=== PATIENT | female | born 1970 | race Hispanic/Latino ===

== ENCOUNTER → 2022-06-29 13:50 | Outpatient (CLI) | payer OTHER, SELFPAY ==
--- NOTE | ~2022-06-29 | MR_ITS ---
EXAMINATION: MR knee LT wo con DATE: 06/29/2022 14:26 INDICATION: Left knee pain TECHNIQUE: Magnetic resonance imaging (MRI) of the left knee was performed without intravenous contra st. Sequences included coronal PD-weighted FSE, coronal PD-weighted FS FSE, sagittal T2-weighted FSE , sagittal PD-weighted FS FSE and axial PD weighted fat saturated FSE. COMPARISON: None. FINDINGS: Medial compartment: Complex tear of the posterior horn of the lateral meniscus which includes both longitudinal horizonta l and radial tear planes. Partial-thickness chondral fissuring along the anterior to central weightbe aring medial femoral condyle which appears to involve greater than 50% the cartilage thickness along the medial anterior femoral condyle with mild underlying edema-like signal change. Lateral compartment: Lateral meniscus is normal. Articular cartilage is normal. Patellofemoral compartment: Tarsal thickness chondral ulceration and deep fissuring at the medial collateral patellar facets and intervening apical ridge with couple small regions of underlying subarticular edema-like signal bishop e at the apical ridge and lateral facet. Chondral swelling and surface irregularity at the medial tro chlea. Ligaments and tendons: Anterior and posterior cruciate ligaments are normal. The medial collateral ligament and fibular chanda ateral ligament complex are normal. Mild distal quadriceps tendinopathy with small enthesophytes at i ts patellar insertion. Patellar tendon is normal. The visualized medial and lateral hamstring tendons as well as the iliotibial band are normal. Fluid: Small left knee joint effusion. No loose osteochondral bodies identified. Pretibial and prepatellar e leola without discrete bursal fluid collections. Osseous/other: Bone alignment is normal. Tiny bone island at the lateral femoral condyle. No fracture or pathologic marrow replacing process. IMPRESSION: 1. Complex medial meniscal tear. 2. 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 3. Likely reactive small left knee joint effusion. 4. Mild distal quadriceps tendinopathy/enthesopathy without tear. Reviewed, dictated and finalized at location A. [employer] IMPRESSION: 1. Complex medial meniscal tear. 2. Mild osteoarthritis with moderate and high-grade chondromalacia in the media l and patellofemoral compartments. 3. Likely reactive small left knee joint effusion. 4. Mild distal quadriceps tendinopathy/enthesopathy without tear.
== END ==
PROVIDERS: Visit Provider Orthopaedic Surgery
DX: S83.232A Complex tear of medial meniscus, current injury, left knee, initial encounter (principal); X58.XXXA Exposure to other specified factors, initial encounter; M17.12 Unilateral primary osteoarthritis, left knee
CPT/HCPCS: 73721